=== PATIENT | female | born 1960 | race African-American/Black ===

== ENCOUNTER → 2020-04-04 | Outpatient (CLI) | payer BC | LOC: COL.RAD 11:58 | DX: N28.1 Cyst of kidney, acquired (principal) ==

== ENCOUNTER 2020-05-11 10:14 | Day surgery (SDC) | payer BC ==
[2020-05-11] VITALS (10 sets, daily range): BP systolic 101–126; BP diastolic 67–82; PULSE 79–88; TEMP 98.6
[~2020-05-11] VITALS: Ht 180.3 cm; Wt 98.5 kg
[2020-05-11] MEDS ORDERED: LOTENSIN40 MG PO (10:41)
[2020-05-11] MEDS ORDERED: HCTZ 25MG TAB25 MG PO (10:42)
[2020-05-11] MEDS ORDERED: XANAX 0.5MG0.5 MG PO (10:43)
[2020-05-11] MEDS ORDERED: GLYNASE PRES-T1.5 MG PO (10:43)
[2020-05-11] MEDS ORDERED: LYRICA 50MG CAP50 MG PO (10:44)
[2020-05-11] MEDS ORDERED: LIPITOR 10MG10 MG PO (10:44)
[2020-05-11] MEDS ORDERED: RHINOCORT0.032 MG/1 NS (10:45)
[2020-05-11] MEDS ORDERED: ASPIRIN E.C. 8181 MG PO (10:45)
[2020-05-11] MEDS ORDERED: ULTRAM 50MG TAB50 MG PO (10:46)
[2020-05-11] MEDS ORDERED: FLEXERIL 1010 MG/TAB PO (10:46)
[2020-05-11] MEDS ORDERED: NORCO 325 MG-51 TAB PO (10:47)
[2020-05-11] MEDS ORDERED: IMDUR 30MG30 MG/TAB PO (10:49)
[2020-05-11] MEDS ORDERED: ONE-A-DAY WOMEN1 TAB PO (10:51)
[2020-05-11] MEDS ORDERED: METAMUCIL3.4 GM/DOS PO (10:52)
[2020-05-11 12:09] LABS: HEMATOCRIT 39.1 % (37.0-47.0); HEMOGLOBIN 12.6 g/dl (12.5-16.0); MEAN CELL VOLUME 86 fl (80.0-100.0); MEAN CORPUSCULAR HEMOGLOBIN 28 pg (27.0-31.0); MEAN CORPUSCULAR HGB CONC 32 g/dl (33.0-37.0); MEAN PLATELET VOLUME 10.5 fl (7.4-10.4); PLATELET COUNT 259 K/mm3 (130-400); RED BLOOD COUNT 4.57 M/mm3 (4.10-5.30)
[2020-05-11 12:11] LABS: CALCIUM 9.6 mg/dL (8.4-10.2); CREATININE, serum 0.81 (0.52-1.25); INR 1.1 (0.8-3.0); POTASSIUM 3.9 mmol/L (3.4-5.0); PROTHROMBIN TIME 12.8 SECONDS (9.7-12.8)
--- NOTE | 2020-05-11 12:18 | NUR ---
SEE MERGE FOR MEDICATION ADMINISTRATION TIMES AND INTRA AND POST SEDATION ASSESSMENTS.
--- NOTE | 2020-05-11 13:05 | NUR ---
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 lunch ordered. call light in reach.
--- NOTE | 2020-05-11 14:00 | NUR ---
PT doing well, eating lunch at this time. cms intact to rt hand distal to TR band.
--- NOTE | 2020-05-11 14:20 | NUR ---
Pt escorted to exit via wheelchair. Rt. radial puncture site remains soft without evidence of hematoma. cms intact distal to dressing. pt encouraged to loosen or remove dressing if it gets too tight.
--- NOTE | 2020-05-11 15:30 | NUR ---
TR band off at this time, after gradual deflation over the lat 30 minutes. bandaid to site, with mild compression dressing of folded 2x2 over puncture site and coban. cms intact distal. i have reviewed dc and fu instructions with pt, she denies any questions or concerns. iv is dc'd with cath intact, dressing applied. pt has been able to eat and drink durin gher recovery, she is ambulatory in room with no problem.
== END 2020-05-11 16:30 | disposition home or self-care (01) ==
LOC: COL.CAR 10:14
PROVIDERS: Internal Medicine Cardiovascular Disease
DX: R07.89 Other chest pain (principal); R94.31 Abnormal electrocardiogram [ECG] [EKG]; I10 Essential (primary) hypertension; E11.9 Type 2 diabetes mellitus without complications; E78.5 Hyperlipidemia, unspecified; E28.2 Polycystic ovarian syndrome; Z88.8 Allergy status to other drugs, medicaments and biological substances; Z88.6 Allergy status to analgesic agent; Z88.0 Allergy status to penicillin; Z79.82 Long term (current) use of aspirin; Z79.4 Long term (current) use of insulin; Z82.61 Family history of arthritis; Z83.3 Family history of diabetes mellitus
CPT/HCPCS: J1644; J2250; J3010; Q9967

== ENCOUNTER → 2020-07-19 | Outpatient (CLI) | payer BC ==
[~2020-07-19] MED LIST: ASPIRIN E.C. 8181 MG PO; FLEXERIL 1010 MG/TAB PO; GLYNASE PRES-T1.5 MG PO; HCTZ 25MG TAB25 MG PO; IMDUR 30MG30 MG/TAB PO; LIPITOR 10MG10 MG PO; LOTENSIN40 MG PO; LYRICA 50MG CAP50 MG PO; METAMUCIL3.4 GM/DOS PO; NORCO 325 MG-51 TAB PO; ONE-A-DAY WOMEN1 TAB PO; RHINOCORT0.032 MG/1 NS; ULTRAM 50MG TAB50 MG PO; XANAX 0.5MG0.5 MG PO
[2020-07-19 15:01] LABS: BASO % 0.7 % (0.0-2.0); EOS # 0.1 (0.0-0.7); EOS % 1.6 % (0-4.0); GRAN # 2.1 (1.4-6.5); GRAN % 47.1 % (42.2-75.2); HEMATOCRIT 44.9 % (37.0-47.0); HEMOGLOBIN 14.4 g/dl (12.5-16.0); LYMPH % 45.3 % (20.0-51.0); MEAN CELL VOLUME 87 fl (80.0-100.0); MEAN CORPUSCULAR HEMOGLOBIN 28 pg (27.0-31.0); MEAN CORPUSCULAR HGB CONC 32 g/dl (33.0-37.0); MEAN PLATELET VOLUME 10.4 fl (7.4-10.4); MONO # 0.2 (0.1-0.6); MONO % 4.9 % (1.7-9.3); PLATELET COUNT 295 K/mm3 (130-400); RED BLOOD COUNT 5.18 M/mm3 (4.10-5.30); REDCELL DISTRIBUTION WIDTH-CV 13.4 % (11.5-14.5)
== END ==
LOC: COL.LAB 13:59
PROVIDERS: Internal Medicine Pulmonary Disease
DX: R07.9 Chest pain, unspecified (principal)